=== PATIENT | female | born 1995 | race Caucasian/White ===

== ENCOUNTER 2020-12-14 14:56 | Outpatient (REF) | payer BC, SELFPAY ==
[2020-12-14 16:23] LABS: Hemoglobin 12.9 g/dl (12.0-16.0); Mean Corpuscular HGB Conc 33.9 g/dl (31.0-35.0); Mean Corpuscular Hemoglobin 29.7 pg (27.0-33.0); Mean Corpuscular Volume 87.6 fL (80-98); Mean Platelet Volume 9.5 fL (9.4-12.3); Platelet Count 285 X10*3/uL (160-400); Red Blood Count 4.34 X10*6/uL (4.20-5.50); Red Cell Distribution Width 13.3 % (11.0-16.0)
[2020-12-14 16:25] LABS: Glucose Urine UA NEG (NEG); Leukocyte Esterase Urine NEG (NEG); Nitrite Urine NEG (NEG); PH 6.5 (5.0-8.0); Urine Blood NEG (NEG); Urine Ketones NEG (NEG); Urine Protein NEG (NEG-TRACE)
[2020-12-14 16:31] LABS: Appearance Urine CLEAR; Color Urine YELLOW
[2020-12-14 16:46] LABS: Alanine Aminotransferase 12 U/L (0-31); Albumin Level 4.5 g/dL (3.5-5.0); Alkaline Phosphatase 40 U/L (39-117); Anion Gap 14 (12-20); Aspartate Amino Transferase 14 U/L (5-31); Bilirubin Total 0.2 mg/dL (0.0-1.0); Blood Urea Nitrogen 11 mg/dL (9-16); Calcium 9.5 mg/dL (8.4-10.2); Carbon Dioxide 23 mmol/L (22-29); Chloride 107 mmol/L (96-108); Estimated Glomerular Filt Rate > 60; Glucose Random 90 mg/dL (60-115); Potassium 4.1 mmol/L (3.3-5.1); Sodium 140 mmol/L (135-145); Total Protein 7.5 g/dL (6.5-8.0)
== END 2020-12-14 14:57 | disposition home or self-care (01) ==
LOC: HO.HMGCLDS 14:56
PROVIDERS: PCP Internal Medicine; Visit Provider Internal Medicine
DX: Z00.00 Encounter for general adult medical examination without abnormal findings (principal); R32 Unspecified urinary incontinence; R35.0 Frequency of micturition
CPT/HCPCS: 36415; 80053; 81003; 85027

== ENCOUNTER 2021-01-10 10:49 | Outpatient (REF) | payer BC, SELFPAY ==
--- NOTE | ~2021-01-10 | US_ITS ---
EXAMINATION: US RETROPERITONEAL COMPLETE (RENAL) CLINICAL INFORMATION: Unspecified urinary incontinence. COMPARISON: None TECHNIQUE: Real-time imaging of the kidneys and bladder. FINDINGS: RIGHT KIDNEY: 11.6 x 3.8 x 6.1 cm (SAG x AP x TRV). The kidney is normal in size, contour, and echogenicity. Renal cortical thickness is normal. There is a 1.1 x 1.3 x 1.1 cm simple cyst in the midpole. No renal calculi or hydronephrosis. LEFT KIDNEY: 11.9 x 4.1 x 5.4 cm (SAG x AP x TRV). The kidney is normal in size, contour, and echogenicity. Renal cortical thickness is normal. There is mild fullness of the left renal pelvis. No renal calculi or focal parenchymal lesions. BLADDER: Well distended and normal. Bilateral ureteral jets are demonstrated. Prevoid bladder volume is 575 mL. Postvoid bladder volume is 30 mL. US/US retroperitoneal comp IMPRESSION: Small right renal cyst. Mild fullness of the left renal pelvis. No hydronephrosis seen. Small 30 mL postvoid bladder residual.
== END 2021-01-10 10:50 | disposition home or self-care (01) ==
LOC: HO.HMGCX 10:49
PROVIDERS: PCP Internal Medicine; Visit Provider Internal Medicine
DX: R32 Unspecified urinary incontinence (principal); R35.0 Frequency of micturition
CPT/HCPCS: 76770